=== PATIENT | female | born 1940 | race Caucasian/White ===

== ENCOUNTER → 2017-05-28 12:58 | Outpatient (CLI) | payer MEDICARE, OTHER | END | disposition home or self-care (01) | LOC: D.MAMMO 04-28 10:15 | DX: Z12.31 Encounter for screening mammogram for malignant neoplasm of breast (principal) ==

== ENCOUNTER 2018-07-14 19:00 | Outpatient (CLI) | payer MEDICARE, OTHER | END 2018-07-14 23:59 | disposition home or self-care (01) | LOC: D.MAMMO 19:00 | PROVIDERS: ATTEND Family Medicine | DX: Z12.31 Encounter for screening mammogram for malignant neoplasm of breast (principal) ==

== ENCOUNTER 2018-09-08 11:15 | Day surgery (SDC) | payer MEDICARE, OTHER ==
[~2018-09-08] VITALS: Ht 162.6 cm; Wt 116.8 kg
--- NOTE | ~2018-09-08 | OP ---
PATIENT NAME: TROY VAZQUEZ MEDICAL RECORD: [id number] :44 LOCATION:[facility] ADMISSION DATE: SURGEON: SHERIF CABRAL DO DATE OF OPERATION: 09/08/2018 PROCEDURE: Colonoscopy with polypectomy. INDICATION FOR PROCEDURE: History of colon polyps, positive stool guaiac, diverticulosis of the colon. SCOPE: Olympus video pediatric colonoscope. MEDICATIONS: Propofol 400 mg IV per anesthesia. WITHDRAWAL TIME: 13 minutes. ESTIMATED BLOOD LOSS: Minimal. COMPLICATIONS: None. FINDINGS: Informed consent was given. The patient was made comfortable with the above medication. After reaching an adequate level of sedation by slow IV push, the patient was placed on her left side. A digital rectal examination was performed and was normal. The endoscope was advanced under direct visualization through the rectum to the cecum, confirmed by the presence of the appendiceal orifice and the ileocecal valve. The endoscope was slowly withdrawn and mucosa was carefully examined. The prep quality was good. There was a single polyp visualized on today's examination. It was a benign-appearing sessile polyp, located in the cecum. It measured approximately 3-4 mm in diameter. It was removed using hot forceps in one piece and completely retrieved. There was evidence of mild diverticulosis involving the distal descending and sigmoid colon. Retroflexion was performed in the rectum with visualization of grade I internal hemorrhoids without active bleeding. The endoscope was withdrawn from the patient. The patient tolerated the procedure well and there were no complications. IMPRESSIONS: 1. A single polyp located in the cecum, status post polypectomy with hot forceps. 2. Mild diverticulosis of the descending and sigmoid colon. 3. Grade I internal hemorrhoids without bleeding. PLAN AND RECOMMENDATIONS: 1. Discharge home when recovery parameters are met. 2. Follow up biopsy specimen results. 3. High fiber diet. 4. Continue current medications. 5. If the patient wishes a recall, could be done in 5 years for continued surveillance based on personal history of polyps. Alternatively, if the patient wishes to no longer undergo surveillance endoscopy, this would be reasonable in light of her last colonoscopy being in 2012 with hyperplastic polyps removed and this polyp possibly could be hyperplastic as well. We will follow up pathology. TRANSINT:[id number] Voice Confirmation ID: [id number] DOCUMENT ID: [id number] OPERATIVE REPORT [id number] TROY VAZQUEZ SHERIF CABRAL DO CC: [id number] DICTATION DATE: 09/08/18 1409 AIRPORT ENGINEER: 09/08/18 1816 [facility] [place] 09/08/18 [facility] [address] [place] [id number]
[2018-09-08 11:41] LABS: HEMATOCRIT 37.6 % (36.0-48.0); HEMOGLOBIN 12.5 g/dL (12-16); MCHC 33.2 g/dL (31.0-37.0); MCV 84.3 fL (80.0-100.0); MEAN PLATELET VOLUME 8.6 fL (7.4-10.4); RBC 4.46 10x6/uL (4.00-5.40); RDW 15.8 % (11.5-14.5)
[2018-09-08 11:50] LABS: APTT 31.3 SECONDS (22.8-39.4); INR 1.2 (0.85-1.17); PROTIME 14.7 SECONDS (11.6-15.0)
[2018-09-08] MEDS ORDERED: ADVAIR HFA 230-12 GM INH (12:01)
[2018-09-08] MEDS ORDERED: VASOTEC10 MG PO (12:02)
[2018-09-08] MEDS ORDERED: HYDROCHLOROTHIA25 MG PO (12:02)
[2018-09-08] MEDS ORDERED: FLUTICASONE PRO16 GM NASAL (12:03)
[2018-09-08] MEDS ORDERED: FOLIC ACID1 MG PO (12:03)
[2018-09-08] MEDS ORDERED: MERIBIN5 MG PO (12:03)
[2018-09-08] MEDS ORDERED: SYNTHROID25 MCG PO (12:04)
[2018-09-08] MEDS ORDERED: OMEPRAZOLE20 M1 PO (12:05)
[2018-09-08] MEDS ORDERED: NAPROXEN250 MG PO (12:05)
[2018-09-08] MEDS ORDERED: METHOTREXATE2.5 MG PO (12:05)
[2018-09-08] MEDS ORDERED: PRAVACHOL20 MG PO (12:06)
[2018-09-08] MEDS ORDERED: VITAMIN B-1250 MG PO (12:07)
[2018-09-08] MEDS ORDERED: VITAMIN D250000 UNIT PO (12:07)
[2018-09-08] MEDS ORDERED: VITAMIN B-121000 MCG PO (12:07)
[2018-09-08 12:47] VITALS: BP 155/74; Ht 162.6 cm; Wt 116.8 kg
== END 2018-09-08 15:00 | disposition home or self-care (01) ==
LOC: D.OPS 11:15
PROVIDERS: Anesthesiology; ATTEND Internal Medicine Gastroenterology
DX: K63.5 Polyp of colon (principal); K57.30 Diverticulosis of large intestine without perforation or abscess without bleeding; K64.0 First degree hemorrhoids; Z01.812 Encounter for preprocedural laboratory examination

== ENCOUNTER 2018-09-15 19:00 | Outpatient (CLI) | payer MEDICARE, OTHER ==
[2018-09-08 12:47] VITALS: BMI 44.2
[~2018-09-15 19:00] MED LIST: ADVAIR HFA 230-12 GM INH; FLUTICASONE PRO16 GM NASAL; FOLIC ACID1 MG PO; HYDROCHLOROTHIA25 MG PO; MERIBIN5 MG PO; METHOTREXATE2.5 MG PO; NAPROXEN250 MG PO; OMEPRAZOLE20 M1 PO; PRAVACHOL20 MG PO; SYNTHROID25 MCG PO; VASOTEC10 MG PO; VITAMIN B-121000 MCG PO; VITAMIN B-1250 MG PO; VITAMIN D250000 UNIT PO
== END 2018-09-15 23:59 | disposition home or self-care (01) ==
LOC: D.MAMMO 19:00
PROVIDERS: ATTEND Family Medicine
DX: R92.8 Other abnormal and inconclusive findings on diagnostic imaging of breast (principal)